=== PATIENT | male | born 1960 | race Native Hawaiian/Other Pacific Islander ===

== ENCOUNTER → 2017-11-17 | Outpatient (CLI) | payer OTHER | LOC: CAT 10:40 | DX: N43.2 Other hydrocele (principal); K40.90 Unilateral inguinal hernia, without obstruction or gangrene, not specified as recurrent ==

== ENCOUNTER → 2018-01-05 | Outpatient (CLI) | payer OTHER | END | disposition home or self-care (01) | LOC: ULTRA 05:37 | DX: I89.8 Other specified noninfective disorders of lymphatic vessels and lymph nodes (principal) ==